=== PATIENT | female | born 1980 | race Caucasian/White ===

== ENCOUNTER → 2019-08-24 | Outpatient (CLI) | payer OTHER | END | disposition home or self-care (01) | LOC: OIH 11:18 | PROVIDERS: ATTEND Family Medicine | DX: R05 Cough (principal); M47.819 Spondylosis without myelopathy or radiculopathy, site unspecified | CPT/HCPCS: 71046 ==

== ENCOUNTER → 2020-10-16 | Outpatient (CLI) | payer BC | END | disposition home or self-care (01) | LOC: RAH 11:39 | PROVIDERS: ATTEND Otolaryngology Plastic Surgery within the Head & Neck | DX: R22.0 Localized swelling, mass and lump, head (principal); J34.2 Deviated nasal septum; J32.8 Other chronic sinusitis | CPT/HCPCS: 70486 ==

== ENCOUNTER 2023-01-22 04:09 | Observation (INO) | payer BC ==
[2023-01-22] VITALS (9 sets, daily range): BP systolic 104–130; BP diastolic 58–82; PULSE 84–95; RESP 17–18; O2SAT 97
[~2023-01-22] VITALS: Ht 154.9 cm; Wt 106.1 kg
[2023-01-22] MEDS ORDERED: DOCUSATE SODIUM 100 MG CAP PO PRN (07:00)
[2023-01-22] MEDS ORDERED: LABETALOL 20MG SYG IV PRN (07:00)
[2023-01-22] MEDS ORDERED: TEMAZEPAM 15 MG CAPSULE PO PRN (07:00)
[2023-01-22] MEDS ORDERED: NITROGLYCERIN 0.4 MG SL TAB SL PRN (07:00)
[2023-01-22] MEDS ORDERED: ONDANSETRON 4MG INJ IVP PRN (07:00)
[2023-01-22] MEDS ORDERED: CLONIDINE HCL 0.1 MG TABLET PO PRN (07:00)
[2023-01-22] MEDS ORDERED: LACTULOSE 20 GM/30 ML UDCUP PO PRN (07:00)
[2023-01-22] MEDS ORDERED: ACETAMINOPHEN 325 MG TAB PO PRN (07:00)
[2023-01-22] MEDS ORDERED: ACETAMINOPHEN 650 MG SUPPOSITORY RC PRN (07:00)
[2023-01-22] MEDS ORDERED: HYDRALAZINE 20MG/ML VIAL IV PRN (07:00)
[2023-01-22] MEDS ORDERED: INSULIN HUMULIN R 100 UNIT/ML 3ML SQ SCH (07:30)
[2023-01-22 07:33] LABS: HEMATOCRIT 36.5 % (36-48); MEAN CORPUSCULAR HGB CONC 33.4 g/dL (32.0-36.0); MEAN CORPUSCULAR VOLUME 86.9 fL (79-99); PLATELET COUNT (AUTO) 367 K/uL (130-400); RED CELL DISTRIBUTION WIDTH 13.2 % (11.0-15.5); WHITE BLOOD COUNT (AUTO) 6.7 K/uL (4.8-10.8)
[2023-01-22 07:42] LABS: HEMOGLOBIN A1C 5.6 % (4.0-6.0)
[2023-01-22 07:48] LABS: ALBUMIN 3.5 g/dL (3.5-5.0); CREATININE 0.7 mg/dL (0.5-1.5); PHOSPHORUS 3.6 mg/dL (2.5-4.9); POTASSIUM 4.1 mmol/L (3.5-5.1)
[2023-01-22 07:58] LABS: BILIRUBIN,TOTAL 0.6 mg/dL (0.2-1.0); MAGNESIUM 2.3 mg/dL (1.80-2.40); THYROID STIMULATING HORMONE 1.72 uIU/mL (0.36-3.74); TOTAL PROTEIN, SERUM 6.7 g/dL (6.0-8.3)
[2023-01-22 07:59] LABS: B-TYPE NATRIURETIC PEPTIDE < 5 pg/mL (0-100)
[2023-01-22] MEDS: ASPIRIN 81MG CHEW TAB PO SCH (08:15)
[2023-01-22] MEDS ORDERED: 0.9%NACL 1000ML 957 ML IV ONE (11:30)
[2023-01-22] MEDS ORDERED: MAG/ALUM/SIMETH 30 ML UDCUP ONE (11:45)
[2023-01-22] MEDS ORDERED: DICYCLOMINE HCL 10 MG/5 ML ML PO ONE (11:46)
[2023-01-22] MEDS: 0.9%NACL 1000ML 1,000 ML IV SCH (11:58)
[2023-01-22] MEDS: DICYCLOMINE HCL PO SCH ×6 (11:59→17:30)
[2023-01-22] MEDS: SIMETH PO SCH ×6 (11:59→17:30)
[2023-01-22] MEDS: ALUM PO SCH ×6 (11:59→17:30)
[2023-01-22] MEDS: VISC PO SCH ×6 (11:59→17:30)
[2023-01-22] MEDS: ZOSYN 3.375GM +NS 50ML IV SCH ×2 (11:59→20:47)
[2023-01-22] MEDS: MAG PO SCH ×6 (11:59→17:30)
[2023-01-22] MEDS: LIDOCAINE HCL 2% PO SCH ×6 (11:59→17:30)
[2023-01-22] MEDS ORDERED: IOHEXOL-350 75 ML VIAL IV ONE (13:40)
[2023-01-22] MEDS ORDERED: LORA10CA PO (18:46)
[2023-01-22] MEDS ORDERED: ATORVASTATIN 40 MG TABLET PO SCH (21:00)
[2023-01-22 21:15] LABS: APPEARANCE,URINE CLEAR (CLEAR); BACTERIA,URINE RARE /HPF (None Seen); BILIRUBIN,URINE NEGATIVE (NEGATIVE); COLOR,URINE LIGHT-YELLOW (YELLOW); GLUCOSE, URINE (UA) NEGATIVE (NEGATIVE); KETONES,URINE NEGATIVE (NEGATIVE); LEUKOCYTE ESTERASE ,URINE NEGATIVE Leu/uL (NEGATIVE); MUCUS,URINE RARE LPF (None Seen); NITRATE,URINE NEGATIVE (NEGATIVE); OCCULT BLOOD,URINE NEGATIVE (NEGATIVE); PH,URINE 6.5 (5.0-8.0); PROTEIN,URINE NEGATIVE (NEGATIVE); RBC,URINE 0-1 /HPF (0-1); SQUAMOUS EPITHELIAL CELL,UR MOD /HPF (0-2); UROBILINOGEN,URINE 0.2 mg/dL (0.2-1.0)
[2023-01-22 21:17] LABS: AMPHET/METH SCREEN,URINE NEGATIVE (NEGATIVE); BARBITURATE SCREEN, URINE NEGATIVE (NEGATIVE); BENZODIAZEPINES SCREEN,URINE NEGATIVE (NEGATIVE); CANNABINOID SCREEN,URINE NEGATIVE (NEGATIVE); COCAINE SCREEN,URINE NEGATIVE (NEGATIVE); OPIATE SCREEN,URINE NEGATIVE (NEGATIVE); PHENCYCLIDINE SCREEN,URINE NEGATIVE (NEGATIVE)
[2023-01-23] MEDS: PANTOPRAZOLE 40 MG/VIAL IVP SCH ×2 (00:11→09:25)
[2023-01-23] MEDS: ALUM PO SCH ×9 (00:28→12:01)
[2023-01-23] MEDS: SIMETH PO SCH ×9 (00:28→12:01)
[2023-01-23] MEDS: LIDOCAINE HCL 2% PO SCH ×9 (00:28→12:01)
[2023-01-23] MEDS: MAG PO SCH ×9 (00:28→12:01)
[2023-01-23] MEDS: VISC PO SCH ×9 (00:28→12:01)
[2023-01-23] MEDS: 0.9%NACL 1000ML 1,000 ML IV SCH ×3 (00:28→11:30)
[2023-01-23] MEDS: DICYCLOMINE HCL PO SCH ×9 (00:28→12:01)
[2023-01-23] MEDS: ZOSYN 3.375GM +NS 50ML IV SCH ×2 (04:16→11:52)
[2023-01-23 04:26] LABS: BASOPHILS # (AUTO) 0.03 K/uL (0.00-0.20); BASOPHILS % (AUTO) 0.5 % (0.0-5.0); EOSINOPHILS # (AUTO) 0.23 K/uL (0.00-0.70); EOSINOPHILS % (AUTO) 4.2 % (0.0-8.0); HEMATOCRIT 37.2 % (36-48); IMMATURE GRANULOCYTE ABSOLUTE 0.01 K/uL (0-1); LYMPHOCYTES # (AUTO) 1.8 K/uL (1.0-4.8); MEAN CORPUSCULAR HGB CONC 32.8 g/dL (32.0-36.0); MEAN CORPUSCULAR VOLUME 88.4 fL (79-99); MONOCYTES # (AUTO) 0.6 K/uL (0.1-1.0); MONOCYTES % (AUTO) 10.3 % (3.0-13.0); NEUTROPHILS # (AUTO) 2.9 K/uL (1.8-7.7); NEUTROPHILS % (AUTO) 51.8 % (40.0-77.0); PLATELET COUNT (AUTO) 314 K/uL (130-400); RED BLOOD CELL COUNT(AUTO) 4.21 MIL/uL (4.00-5.50); RED CELL DISTRIBUTION WIDTH 13.3 % (11.0-15.5); WHITE BLOOD COUNT (AUTO) 5.5 K/uL (4.8-10.8)
[2023-01-23 04:44] LABS: CREATININE 0.7 mg/dL (0.5-1.5); MAGNESIUM 2.3 mg/dL (1.80-2.40); PHOSPHORUS 4.1 mg/dL (2.5-4.9); POTASSIUM 4.5 mmol/L (3.5-5.1)
[2023-01-23 04:52] VITALS: BP 116/72; PULSE 71; RESP 18
[2023-01-23 07:34] VITALS: BP 113/73; PULSE 78; RESP 18
[2023-01-23 08:00] VITALS: O2SAT 97
[2023-01-23] MEDS: ASPIRIN 81MG CHEW TAB PO SCH (09:25)
[2023-01-23 12:21] VITALS: BP 124/85; PULSE 75; RESP 18
[2023-01-23] MEDS ORDERED: OMEP40CA21 PO (12:39)
[2023-01-23] MEDS ORDERED: SUCR1TAB2 PO (12:39)
== END 2023-01-23 15:03 | disposition home or self-care (01) ==
LOC: EDHIP 05:59 → LDH 12:55 → EDHIP 13:10 → 2AH 17:55
PROVIDERS: ADMIT Internal Medicine Critical Care Medicine; ATTEND Internal Medicine Critical Care Medicine
DX: R10.9 Unspecified abdominal pain (principal); R11.2 Nausea with vomiting, unspecified; R19.7 Diarrhea, unspecified; R51.9 Headache, unspecified; E86.9 Volume depletion, unspecified; E66.01 Morbid (severe) obesity due to excess calories; F41.9 Anxiety disorder, unspecified; E66.9 Obesity, unspecified; Z68.41 Body mass index [BMI] 40.0-44.9, adult; Z79.899 Other long term (current) drug therapy
CPT/HCPCS: 96365; 96366 ×2; 83036; 84443; 83735 ×2; 84100 ×2; 84484 ×3; 80053; 83880; 80305; 83690; 85027; 85378; 81001; 36415 ×2; 71045; 74178; 93306; 96376; 96361; 96375; 80048; 85025; 83605; 84145; G0378 ×31; J2543 ×4; Q9967; C9113 ×2

== ENCOUNTER → 2024-03-31 | Outpatient (CLI) | payer BC, OTHER ==
[~2024-03-31] MED LIST: LORA10CA PO; OMEP40CA21 PO; SUCR1TAB2 PO
--- NOTE | 2024-03-31 10:12 | HMCIMG ---
Exam Type: MAMMO SCREENING BILATERAL Clinical Information: ROUTINE SCREENING Comparison: January 13, 2022 Technique: Mammogram with CAD was performed with CC and MLO projections. CAD shows no worrisome regions. FINDINGS: The breasts are heterogeneously dense, which may obscure small masses. No dominant mass or suspicious microcalcification identified. There is no nipple retraction or skin thickening. Benign-appearing calcifications are seen. CAD shows no worrisome regions. IMPRESSION: 1. No mammographic signs of malignancy. 2. Routine follow-up recommended. CATEGORY 2: BENIGN FINDINGS Note: A negative x-ray should not delay biopsy if a dominant or clinically suspicious mass is present, since 8-10% of cancers are not identified by mammography. Dense breasts may obscure an underlying neoplasm.
== END | disposition home or self-care (01) ==
LOC: RAH 09:09
PROVIDERS: ATTEND Family Medicine
DX: Z12.31 Encounter for screening mammogram for malignant neoplasm of breast (principal); R92.323 Mammographic fibroglandular density, bilateral breasts
CPT/HCPCS: 77067

== ENCOUNTER → 2024-08-15 | Outpatient (CLI) | payer BC, OTHER ==
--- NOTE | 2024-08-16 12:56 | HMCIMG ---
[facility] BIL[facility] HISTORY: Diffuse cystic mastopathy COMPARISON: 03/31/2024 TECHNIQUE: Bilateral diagnostic mammogram with CAD was performed with craniocaudal and mediolateral oblique projections. Additional tomosynthesis images were obtained. FINDINGS: The breasts are heterogeneously dense which may obscure small masses. Calcified nodule is seen in the lower inner quadrant of the left breast most likely related to calcified fibroadenoma. There is no evidence of a dominant mass, or suspicious microcalcification. There is no evidence of nipple retraction or skin thickening. If needed, MRI may be performed per referring physician. IMPRESSION: 1. Stable mammogram. Calcified nodule in the lower inner quadrant left breast may be related to calcified plaque. Patient was entered into a reminder system with a target due date for their next mammogram. BI-RADS: CATEGORY 2: BENIGN FINDINGS Recommend monthly self breast exam as well as annual clinical examination. A negative x-ray should not delay biopsy if a dominant or clinically suspicious mass is present, since 8-10% of cancers are not identified by mammography. Dense breasts particularly, may obscure an underlying neoplasm. Some of these may be detected clinically and therefore, clinical examination is an essential part of breast evaluation.
== END | disposition home or self-care (01) ==
LOC: RAH 13:38
PROVIDERS: ATTEND Student in an Organized Health Care Education/Training Program
DX: N60.11 Diffuse cystic mastopathy of right breast (principal); N60.12 Diffuse cystic mastopathy of left breast; N63.24 Unspecified lump in the left breast, lower inner quadrant; R92.333 Mammographic heterogeneous density, bilateral breasts
CPT/HCPCS: 77062; 77066